=== PATIENT | male | born 1965 | race Caucasian/White ===

== ENCOUNTER 2017-12-08 18:32 | Emergency (ER) | payer OTHER ==
[~2017-12-08] VITALS: Ht 172.7 cm; Wt 82.6 kg
--- NOTE | 2017-12-08 18:47 | NUR ---
PT IS IN ROOM #2B . DR MCCLENDON EVALUATED THE PT.
[2017-12-08] MEDS ORDERED: HYDROMORPHONE 1 MG/1 ML DISP.SYRIN IV ONE (19:00)
[2017-12-08] MEDS ORDERED: ONDANSETRON 4 MG/2 ML VIAL IV ONE (19:00)
[2017-12-08] MEDS ORDERED: IV NORMAL SALINE 1000 ML BAG IV ONE (19:00)
[2017-12-08] MEDS ORDERED: ONDANSETRON 4 MG/2 ML VIAL ONE (19:09)
[2017-12-08] MEDS ORDERED: HYDROMORPHONE 1 MG/1 ML DISP.SYRIN ONE (19:09)
[2017-12-08 19:14] LABS: BASOPHILS # (AUTO) 0.1 K/uL (0.0-8.0); BASOPHILS % (AUTO) 0.6 % (0.0-2.0); EOSINOPHILS # (AUTO) 0.1 K/uL (0.0-0.7); EOSINOPHILS % (AUTO) 0.5 % (0.0-7.0); HEMATOCRIT 45.2 % (36.7-47.1); HEMOGLOBIN 15.7 g/dL (12.5-16.3); LYMPHOCYTES # (AUTO) 1.5 K/uL (20.0-40.0); LYMPHOCYTES % (AUTO) 13.4 % (20.5-51.5); MEAN CORPUSCULAR HEMOGLOBIN 33.2 uug (23.8-33.4); MEAN CORPUSCULAR HGB CONC 35 g/dL (32.5-36.3); MEAN CORPUSCULAR VOLUME 95.6 fL (73.0-96.2); MONOCYTES # (AUTO) 0.5 K/uL (2.0-10.0); MONOCYTES % (AUTO) 4.7 % (0.0-11.0); NEUTROPHILS # (AUTO) 9.1 K/uL (1.8-8.9); NEUTROPHILS % (AUTO) 80.8 % (38.5-71.5); PLATELET COUNT (AUTO) 194 K/uL (152-348); RED BLOOD CELL COUNT(AUTO) 4.72 MIL/uL (4.06-5.63); WHITE BLOOD COUNT (AUTO) 11.3 K/uL (3.6-10.2)
--- NOTE | 2017-12-08 19:21 | NUR ---
PT TO XRAY FOR CT SCAN OF ABD./PELVIS W/O CONTRAST VIA GURNEY.
[2017-12-08 19:23] LABS: CREATININE 1.1 mg/dL (0.6-1.3)
[2017-12-08 19:29] LABS: BILIRUBIN,DIRECT 0.1 mg/dL (0.0-0.2); TOTAL PROTEIN, SERUM 7.9 g/dL (6.4-8.2)
--- NOTE | 2017-12-08 19:37 | NUR ---
BACK TO CONNECTED TO IVF INFUSING WELL.
[2017-12-08 20:18] VITALS: BP 110/80
--- NOTE | 2017-12-08 20:19 | NUR ---
Patient discharged to home in stable conditon, ambulatory. Written and verbal after care instructions given to pt & to his family. Patient verbalizes understanding of instructions.
== END 2017-12-08 20:21 | disposition home or self-care (01) ==
LOC: ER 18:32
DX: N20.0 Calculus of kidney (principal); F17.200 Nicotine dependence, unspecified, uncomplicated
CPT/HCPCS: 36415; 71045; 74176; 80048; 80076; 83690; 84484; 85025; 85730; 93005; 96361; 96374; 96375; 99285; J1170; J2405; 70030-TC; A4663; J7030

== ENCOUNTER 2018-11-17 23:14 | Emergency (ER) | payer OTHER ==
[~2018-11-17] VITALS: Ht 172.7 cm; Wt 79.4 kg
--- NOTE | 2018-11-17 23:35 | NUR ---
DR DILLARD AT BEDSIDE FOR MSE.
[2018-11-17] MEDS ORDERED: predniSONE 20 MG TABLET ONE (23:44)
[2018-11-17] MEDS ORDERED: HYDROCODONE/APAP 10-325 MG TABLET PO ONE (23:45)
[2018-11-17] MEDS ORDERED: ONDANSETRON ODT 4 MG TAB.RAPDIS ONE (23:45)
[2018-11-17] MEDS ORDERED: ONDANSETRON ODT 4 MG TAB.RAPDIS SL ONE (23:45)
[2018-11-17] MEDS ORDERED: HYDROCODONE/APAP 10-325 MG TABLET ONE (23:45)
[2018-11-17] MEDS ORDERED: predniSONE 20 MG TABLET PO ONE (23:45)
--- NOTE | 2018-11-18 00:27 | NUR ---
CAR BLOCKER HERE FOR PT.
--- NOTE | 2018-11-18 01:07 | NUR ---
Patient discharged to home in stable conditon. Written and verbal after care instructions given. Patient verbalizes understanding of instructions. pt ambulated out of ER with stable gait. All belongings with patient.
[2018-11-18 01:08] VITALS: BP 115/89
== END 2018-11-18 01:19 | disposition home or self-care (01) ==
LOC: ER 23:16
DX: M79.644 Pain in right finger(s) (principal); M25.541 Pain in joints of right hand; F17.210 Nicotine dependence, cigarettes, uncomplicated
CPT/HCPCS: 29125; 73130; 99284; J7512; A4663; Q0162

== ENCOUNTER 2021-12-29 11:56 | Emergency (ER) | payer OTHER ==
[~2021-12-29] VITALS: Ht 170.2 cm; Wt 88.9 kg
[2021-12-29] MEDS ORDERED: ACETAMINOPHEN ES 500 MG TABLET PO ONE (13:00)
[2021-12-29] MEDS ORDERED: ACETAMINOPHEN ES 500 MG TABLET ONE (13:30)
--- NOTE | 2021-12-29 15:59 | NUR ---
PATIENT CAME TO [facility] ER FOR C/O (RT) HAND SWELLING AND PAIN. PATIENT IS A/O X 4, SEEN BY THE ER MD, MEDICATED FOR PAIN AND X-RAYS COMPLETED AT THE BEDSIDE. PATIENT SEEN BY THE MD AND CLEARED FOR DISCHARGE, INSTRUCTIONS PROVIDED AND (RT) ARM SLING APPLIED. PATIENT STABLE LEFT AMBULATORY HOME.
== END 2021-12-29 15:45 | disposition home or self-care (01) ==
LOC: ER 12:18
DX: S60.221A Contusion of right hand, initial encounter (principal); W19.XXXA Unspecified fall, initial encounter; Y92.89 Other specified places as the place of occurrence of the external cause; F17.210 Nicotine dependence, cigarettes, uncomplicated; M79.641 Pain in right hand
CPT/HCPCS: 73110; 73130; A4663; A9150

== ENCOUNTER 2025-02-03 20:48 | Emergency (ER) | payer OTHER ==
[~2025-02-03] VITALS: Ht 170.2 cm; Wt 74.8 kg
[2025-02-03] MEDS ORDERED: KETOROLAC TROMETHAMINE 30 MG INJ ONE (22:17)
[2025-02-03] MEDS: KETOROLAC TROMETHAMINE 30 MG INJ IM ONE (22:21)
[2025-02-03 23:04] VITALS: BP 130/75
[2025-02-03] MEDS ORDERED: IBUP-2760 PO (23:07)
[2025-02-03 23:40] VITALS: BP 128/77; TEMP 98; O2SAT 98
== END 2025-02-03 23:40 | disposition home or self-care (01) ==
LOC: ER 21:16
DX: R07.89 Other chest pain (principal); J90 Pleural effusion, not elsewhere classified; F17.200 Nicotine dependence, unspecified, uncomplicated
CPT/HCPCS: 99283; 71101; 96372; J1885; A4606; A4663